=== PATIENT | female | born 1945 | race African-American/Black ===

== ENCOUNTER 2018-02-02 10:42 | Emergency (ER) | payer OTHER ==
[~2018-02-02] VITALS: Ht 162.6 cm; Wt 69.8 kg
[~2018-02-02 10:42] MED LIST: ADULT LOW DOSE81 MG PO; ALDACTONE PO; AMLODIPINE BESY10 MG PO; AMLODIPINE BESYL5 MG PO; AMLODIPINE-BEN1 EAC5 PO; AMOXICILLIN; AMOXICILLIN875 MG PO; ASPIR 8181 MG PO; ASPIRIN325; ATIVAN1 MG PO; BACTRIM DS TAB1 EACH PO; CHLORTHALIDONE25 MG PO; CLONIDINE; CLONIDINE PO; COLACE100 MG OR; COLACE100 MG PO; CYCLOBENZAPRINE10 MG PO; EFFEXOR PO; EFFEXOR75 MG PO; ENALAPRIL MALEA20 MG PO; FIORICET 50-321 EACH PO; FISHOIL OR; FLAGYL500 MG; FLEXERIL PO; GLYCOLAX POWDER17 G1 OR; HYDRALAZINE 2525 M1 PO; HYDROCODON-ACE1 EAC5; IBUPROFEN 400400 M1 PO; KAPVAY0.1 MG PO; LIPITOR10 MG PO; LIPITOR20 MG PO; METOPROLOL 100100 M1 PO; NEURONTIN 300300 M1 PO; NORCO 5-325 TA1 EACH PO; PERCOCET 5-3251 EACH PO; PERCOCET PO; PHENERGAN 25 MG25 M1 PO; PINDOLOL; PINDOLOL PO; POTASSIUM20 PO; PREDNISONE50 MG PO; PRILOSEC40 MG PO; SPIRONOLACTONE50 MG PO; TOPROL XL50 MG PO; TYLENOL325 MG PO; VITAMIN D1000 UNI1 PO; VOLTAREN
[2018-02-02] MEDS ORDERED: BACTRIM DS TAB1 EACH PO (11:31)
[2018-02-02] MEDS ORDERED: HYDROCODONE-AP1 EAC6 PO (11:31)
[2018-02-02 11:42] VITALS: BP 181/80
== END 2018-02-02 11:43 | disposition home or self-care (01) ==
LOC: ER 10:42
DX: L02.212 Cutaneous abscess of back [any part, except buttock and flank] (principal); I10 Essential (primary) hypertension; Z86.73 Personal history of transient ischemic attack (TIA), and cerebral infarction without residual deficits; Z96.653 Presence of artificial knee joint, bilateral; Z88.5 Allergy status to narcotic agent; Z88.6 Allergy status to analgesic agent

== ENCOUNTER 2020-01-20 22:46 | Emergency (ER) | payer OTHER, MEDICARE ==
[~2020-01-20] VITALS: Ht 162.6 cm; Wt 81.7 kg
[~2020-01-20 22:46] MED LIST changes: +HYDROCODONE-AP1 EAC6 PO
[2020-01-20 23:10] LABS: HEMATOCRIT 33.5 % (37.0-47.0); HEMOGLOBIN 10.7 gm/dL (12.0-15.0); MCH 32.6 pg (26.0-34.0); MCV 101.8 fL (80.0-100.0); RBC 3.29 mil/uL (4.20-5.00); RDW 15.2 % (10.5-14.5); WBC 4.6 thou/uL (4.0-11.0)
[2020-01-20 23:18] LABS: ANION GAP 10 mmol/L (7-16); BUN 20 mg/dL (7-18); CALCIUM 9.9 mg/dL (8.5-10.1); CHLORIDE 105 mmol/L (98-107); CO2 25 mmol/L (21-32); CREATININE 1.3 mg/dL (0.6-1.0); GLUCOSE 134 mg/dL (74-106); POTASSIUM 3.2 mmol/L (3.5-5.1); SODIUM 140 mmol/L (136-145)
[2020-01-20 23:27] LABS: TROPONIN-I <0.06 ng/mL (<0.06)
[2020-01-20] MEDS ORDERED: IRON325 M1 PO (23:31)
[2020-01-20] MEDS ORDERED: KEPPRA XR500 MG PO (23:32)
[2020-01-20] MEDS ORDERED: LISINOPRIL2.5 MG PO (23:33)
[2020-01-20] MEDS ORDERED: NORVASC 2.5 MG2.5 M1 PO (23:34)
[2020-01-20] MEDS ORDERED: LEXAPRO20 MG PO (23:34)
[2020-01-20] MEDS ORDERED: ATORVASTATIN CA20 MG PO (23:35)
[2020-01-20] MEDS ORDERED: CHLORTHALIDONE25 MG PO (23:35)
[2020-01-20] MEDS ORDERED: TYLENOL PO (23:37)
[2020-01-20] MEDS ORDERED: TRAZODONE 150150 M1 PO (23:39)
[2020-01-21 01:20] VITALS: BP 114/59
--- NOTE | 2020-01-21 17:20 | EKG ---
[facility] [place] [address] ELECTROCARDIOGRAM REPORT Name: MELISSA GIBSON Room #: DEP Raj#: [id number] Admission: 01/20/20 Attend Phys: Discharge: 01/21/20 Date of : 47 Report #: [id number] THIS REPORT FOR: cc: Geraldo Rose Theodore M. DO Couchonnal, Luis F. 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 : [id number] Requested By: Bernard Khan Order Number: [id number] MD: Collin Patton Measurements Intervals [place] Rate: 61 P: 40 [place]: 183 QRS: 8 QRSD: 90 T: 8 QT: 425 QTc: 428 Interpretive Statements Sinus rhythm Ventricular trigeminy Left ventricular hypertrophy Borderline T abnormalities, anterior leads Compared to ECG 04/11/2014 11:43:17 Ventricular premature complex(es) now present T-wave abnormality now present Sinus bradycardia no longer present Early repolarization no longer present Electronically Signed On 01-21-2020 17:19:08 CDT by Collin Patton [email or web address] <ELECTRONICALLY SIGNED> By: Collin Patton MD 01/21/20 1719 2315 2315 Collin Patton MD /EPI
== END 2020-01-21 01:25 | disposition home or self-care (01) ==
LOC: ER 22:46
PROVIDERS: Emergency Medicine
DX: R55 Syncope and collapse (principal); T43.215A Adverse effect of selective serotonin and norepinephrine reuptake inhibitors, initial encounter; I10 Essential (primary) hypertension; Z79.899 Other long term (current) drug therapy; Z86.73 Personal history of transient ischemic attack (TIA), and cerebral infarction without residual deficits; Y92.89 Other specified places as the place of occurrence of the external cause